=== PATIENT | female | born 1995 | race Caucasian/White ===

== ENCOUNTER 2018-05-13 09:52 | Emergency (ER) | payer MEDICAID ==
[~2018-05-13] VITALS: Ht 165.1 cm; Wt 150.6 kg
[~2018-05-13 09:52] MED LIST: ASPI1TAB31 PO; BIRTHCONTROL; EXCEDRIN
[2018-05-13] MEDS ORDERED: SODIUM CHLORIDE FLUSH 10ML SYR IVF ONE (11:00)
[2018-05-13] MEDS ORDERED: DIPHENHYDRAMINE 50 MG/ML, 1ML IVPush ONE (11:00)
[2018-05-13] MEDS ORDERED: FAMOTIDINE 20 MG/2 ML IVPush ONE (11:00)
[2018-05-13] MEDS ORDERED: methylPREDNISolone SOD SUCC 125 MG/2 ML IVPush ONE (11:00)
[2018-05-13 12:49] VITALS: BP 124/88
== END 2018-05-13 12:51 | disposition home or self-care (01) ==
LOC: ED 12:38
DX: S10.96XA Insect bite of unspecified part of neck, initial encounter (principal); Z90.49 Acquired absence of other specified parts of digestive tract; W57.XXXA Bitten or stung by nonvenomous insect and other nonvenomous arthropods, initial encounter; Y93.89 Activity, other specified; Y99.8 Other external cause status; Y92.410 Unspecified street and highway as the place of occurrence of the external cause
CPT/HCPCS: 99283

== ENCOUNTER 2018-10-31 21:24 | Emergency (ER) | payer MEDICAID ==
[~2018-10-31] VITALS: Ht 165.1 cm; Wt 159.7 kg
[2018-10-31 21:26] VITALS: BP 149/99
--- NOTE | 2018-10-31 21:42 | NUR ---
PT IS HERE FOR RIGHT SIDED DENTAL PAIN.
--- NOTE | 2018-10-31 22:30 | NUR ---
Patient/Caregiver given discharge instructions and they have confirmed that they understand the instructions. Patient ambulatory with steady gait.
== END 2018-10-31 22:32 | disposition home or self-care (01) ==
LOC: ED 22:21
DX: K04.7 Periapical abscess without sinus (principal); K08.89 Other specified disorders of teeth and supporting structures
CPT/HCPCS: 99283

== ENCOUNTER 2018-11-06 04:09 | Emergency (ER) | payer MEDICAID ==
[~2018-11-06] VITALS: Ht 165.1 cm; Wt 160.0 kg
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
--- NOTE | 2018-11-06 05:09 | NUR ---
CCOLLAR APPLIED. PT TO US
[2018-11-06] MEDS ORDERED: ACETAMINOPHEN 325 MG TABLET PO ONE (05:30)
--- NOTE | 2018-11-06 06:21 | NUR ---
PT IN IMAGING
--- NOTE | 2018-11-06 06:52 | NUR ---
REPORT TO MARLENE TILLMAN
--- NOTE | 2018-11-06 06:55 | NUR ---
REPORT FROM PURNIMA ROSARIO.
--- NOTE | 2018-11-06 07:00 | NUR ---
PT IS RESTING IN BED, TALKING WITH FRIENDS, RESPIRATIONS EQUAL AND NON LABORED. NAD. PT IS CONNECTED TO THE MONITOR. CALL LIGHT WITHIN REACH.
[2018-11-06] MEDS ORDERED: KETOROLAC 30 MG/1 ML ONE (07:58)
[2018-11-06] MEDS ORDERED: KETOROLAC 30 MG/1 ML IM ONE (08:00)
[2018-11-06 08:05] VITALS: BP 127/60
--- NOTE | 2018-11-06 08:06 | NUR ---
PT MEDICATED PER ORDER. PT TOLERATED WELL.
--- NOTE | 2018-11-06 08:45 | NUR ---
Patient given discharge instructions and they have confirmed that they understand the instructions. Patient ambulatory with steady gait.
== END 2018-11-06 08:47 | disposition home or self-care (01) ==
LOC: ED 06:56
DX: S16.1XXA Strain of muscle, fascia and tendon at neck level, initial encounter (principal); S29.012A Strain of muscle and tendon of back wall of thorax, initial encounter; G43.909 Migraine, unspecified, not intractable, without status migrainosus; E66.9 Obesity, unspecified; V49.49XA Driver injured in collision with other motor vehicles in traffic accident, initial encounter; Y93.89 Activity, other specified; Y92.89 Other specified places as the place of occurrence of the external cause; Y99.8 Other external cause status
CPT/HCPCS: 36415; 72020; 72050; 72072; 73564; 76830; 84703; 96372; 99284; J1885